=== PATIENT | male | born 1960 | race Caucasian/White ===

== ENCOUNTER → 2024-02-02 | Outpatient (CLI) | payer MEDICARE, OTHER ==
--- NOTE | 2024-02-02 20:00 | US ---
EXAMINATION TYPE: US Aorta Screening DATE OF EXAM: 02/02/2024 COMPARISON: NONE CLINICAL INDICATION: Male, 63 years old with history of Z13.6 ENCOUNTER FOR SCREENING FOR CARDIOVASCU LAR D; HX smoking TECHNIQUE: Multiple sonographic images of the abdominal aorta are obtained. FINDINGS: EXAM MEASUREMENTS: Abdominal Aorta: Proximal: 2.3 x 1.8 cm Mid: 2.0 x 2.2 cm Distal: 3.3 x 3.3 cm Bifurcation: Right Iliac: 1.1 x 0.7 cm Left Iliac: 1.0 x 0.9 cm [employer] NOTES: Despite plaque throughout the abdominal aorta with distal abdominal aorta aneurysm measuring up to 3. 3 cm. IMPRESSION: Distal abdominal aortic aneurysm measuring up to 3.3 cm.
== END | disposition home or self-care (01) ==
LOC: RADUSWWP 07:23
PROVIDERS: ATTEND Family Medicine
DX: Z13.6 Encounter for screening for cardiovascular disorders (principal); I71.40 Abdominal aortic aneurysm, without rupture, unspecified
CPT/HCPCS: 76706

== ENCOUNTER 2025-03-23 12:11 | Day surgery (SDC) | payer MEDICARE ==
[2025-03-23] MEDS: IV FLUID CONTINUATION 1,000 ML IV ONE (12:59)
[2025-03-23 13:03] VITALS: RESP 16; TEMP 98.2
[2025-03-23] MEDS: LACTATED RINGERS 1,000 ML IV SCH (13:16)
[2025-03-23] MEDS ORDERED: LIDOCAINE 1% INJ 10MG/ML (20 ML MDV) ONE (13:54)
[2025-03-23] MEDS ORDERED: PROPOFOL 10 MG/ML 20 ML VIAL IV ONE (13:54)
--- NOTE | 2025-03-23 14:22 | P.PCN ---
Date of Procedure: 03/23/25 Procedure(s) Performed: BRIEF HISTORY: Patient is a 65-year-old, pleasant, white male scheduled for an upper endoscopy as a part of evaluation of longstanding history of GERD and family history of esophageal cancer. PROCEDURE PERFORMED: Esophagogastroduodenoscopy with biopsy. PREOPERATIVE DIAGNOSIS: Longstanding history of GERD. IV sedation per anesthesia. PROCEDURE: After informed consent was obtained, the patient was brought into the endoscopy unit. IV sedation was administered by Anesthesia under continuous monitoring. Initially the Olympus GIF-140 video endoscope was inserted into the mouth. Esophagus intubated without any difficulty. It was gradually advanced into the stomach and duodenum and carefully examined. The bulb and the second part of the duodenum appeared normal. The scope at this time was withdrawn to the stomach, adequately insufflated with air, and upon careful examination, mucosa of the antrum, and mild gastritis and biopsies were done from this area. Mucosa of the body, cardia and the fundus appeared normal. The scope was then withdrawn into the esophagus. Moderate size hiatal hernia noted. The GE junction was located at 39 cm from the incisors. In the distal esophagus just above the GE junction extending from 35 to 38 cm from the incisors there was a flat area with extremely friable mucosa and multiple biopsies were done from this area to rule out neoplasm. Proximal to this area there were several erosions consistent with LA grade B reflux esophagitis. The rest of the esophagus appeared normal. The patient tolerated the procedure well. IMPRESSION: 1. Moderate size hiatal hernia. 2. Severe esophagitis with friable mucosa involving the distal esophagus just proximal to the GE junction extending from 35 to 38 cm from the incisors status post multiple biopsies. 3. Erosions in the distal esophagus consistent with LA grade B reflux esophagi tis 4. Mild antral gastritis RECOMMENDATIONS: The findings of this examination were discussed with the patient as well as his family. He was advised to follow-up with the biopsy results. He will be started on Protonix 40 mg twice daily and he will be seen in the office in 1 week..
[2025-03-23 14:41] VITALS: BP 122/81; PULSE 68
== END 2025-03-23 15:10 | disposition home or self-care (01) ==
LOC: ORWHC2ENDO 12:11
PROVIDERS: ATTEND Internal Medicine Gastroenterology
DX: K29.50 Unspecified chronic gastritis without bleeding (principal); K21.00 Gastro-esophageal reflux disease with esophagitis, without bleeding; K22.10 Ulcer of esophagus without bleeding; K44.9 Diaphragmatic hernia without obstruction or gangrene; Z80.0 Family history of malignant neoplasm of digestive organs
CPT/HCPCS: 88305; 43239; J2003; J2704